=== PATIENT | female | born 1960 | race African-American/Black ===

== ENCOUNTER 2018-07-03 23:10 | Emergency (ER) | payer OTHER ==
[~2018-07-03] VITALS: Ht 175.3 cm; Wt 80.7 kg
[2018-07-03 23:21] VITALS: BP 124/74
[2018-07-03 23:48] LABS: BILIRUBIN,URINE NEGATIVE (NEG); CLARITY,URINE TURBID; COLOR,URINE AMBER; NITRITE,URINE NEGATIVE (NEG); PROTEIN,URINE >=300 mg/dL (NEG-TRACE)
[2018-07-04] LABS: BACTERIA,URINE MANY /HPF (0-FEW); RBC,URINE TNTC /HPF (0-2); SQUAMOUS EPITHELIAL CELL,UR OCC /LPF; WBC,URINE TNTC /HPF (0-4)
[2018-07-04] MEDS ORDERED: PHENAZOPYRIDINE 200 MG TABLET. PO ONE (00:30)
[2018-07-04] MEDS ORDERED: IBUPROFEN 400 MG TABLET. PO ONE (00:30)
[2018-07-04] MEDS ORDERED: SMZ/TMP 800/160MG TABLET. PO ONE (00:30)
[2018-07-04] MEDS ORDERED: CETIRIZINE HCL 10 MG TABLET. PO ONE (00:30)
[2018-07-04] MEDS ORDERED: PHEN100T82 PO (00:32)
[2018-07-04] MEDS ORDERED: DICL50TA4 PO (00:32)
[2018-07-04] MEDS ORDERED: SULF1TAB24 PO (00:32)
--- NOTE | 2018-07-04 00:32 | PHYS DOC ---
Past Medical History Past Medical History: Arthritis, Constipation Past Surgical History: Hysterectomy, Tubal ligation Alcohol Use: None Drug Use: None Adult General Chief Complaint Chief Complaint: BLOOD IN URINE HPI HPI Patient is a 57 year old female who presents complaining of urgency, frequency , dysuria that began yesterday. She also states today prior to coming to the ED she wiped herself postvoiding and noted small amount of blood on the toilet paper. Denies any fever. Denies any nausea, vomiting. Denies any flank pain. Denies any personal history of kidney stones. Review of Systems Review of Systems Constitutional: Denies fever or chills [] Eyes: Denies change in visual acuity, redness, or eye pain [] HENT: Denies nasal congestion or sore throat [] Respiratory: Denies cough or shortness of breath [] Cardiovascular: No additional information not addressed in HPI [] GI: Denies abdominal pain, nausea, vomiting, bloody stools or diarrhea [] : Reports urgency frequency dysuria and trace hematuria Musculoskeletal: Denies back pain or joint pain [] Integument: Denies rash or skin lesions [] Neurologic: Denies headache, focal weakness or sensory changes [] All other systems were reviewed and found to be within normal limits, except as documented in this note. Current Medications Current Medications Current Medications Medications (Trade) Dose Ordered Sig/Luis Start Time Stop Time Status Last Admin Dose Admin Cetirizine HCl (ZyrTEC) 10 mg 1X ONCE 07/04/18 00:30 07/04/18 00:31 DC 07/04/18 00:34 10 MG Ibuprofen (Motrin) 800 mg 1X ONCE 07/04/18 00:30 07/04/18 00:31 DC 07/04/18 00:35 800 MG Phenazopyridine HCl (Pyridium) 200 mg 1X ONCE 07/04/18 00:30 07/04/18 00:31 DC 07/04/18 00:34 200 MG Trimethoprim/ Sulfamethoxazole (Bactrim Ds) 1 tab 1X ONCE 07/04/18 00:30 07/04/18 00:31 DC 07/04/18 00:34 1 TAB Allergies Allergies Allergies Coded Allergies Type Severity Reaction Last Updated Verified codeine Allergy Intermediate Itching 02/21/16 Yes oxycodone Allergy Intermediate Hives 02/21/16 Yes Physical Exam Physical Exam Constitutional: Well developed, well nourished, no acute distress, non-toxic appearance. [] HENT: Normocephalic, atraumatic, bilateral external ears normal, oropharynx moist, no oral exudates, nose normal. [] Eyes: PERRLA, EOMI, conjunctiva normal, no discharge. [] Neck: Normal range of motion, no tenderness, supple, no stridor. [] Cardiovascular:Heart rate regular rhythm, no murmur [] Lungs & Thorax: Bilateral breath sounds clear to auscultation [] Abdomen: Bowel sounds normal, soft, no tenderness, no masses, no pulsatile masses. [] Skin: Warm, dry, no erythema, no rash. [] Back: No tenderness, no CVA tenderness. [] Extremities: No tenderness, no cyanosis, no clubbing, ROM intact, no edema. [] Neurologic: Alert and oriented X 3, normal motor function, normal sensory function, no focal deficits noted. [] Psychologic: Affect normal, judgement normal, mood normal. [] Current Patient Data Vital Signs Vital Signs Date Time Temp Pulse Resp B/P (MAP) Pulse Ox O2 Delivery O2 Flow Rate FiO2 07/03/18 23:21 97.4 84 18 124/74 (91) 100 Room Air 97.4 Lab Values Laboratory Tests Test 07/03/18 23:15 Urine Collection Type Void Urine Color Teresa Urine Clarity Turbid Urine pH 6.0 Urine Specific [place] 1.025 Urine Protein >=300 mg/dL (NEG-TRACE) Urine Glucose (UA) Negative mg/dL (NEG) Urine Ketones (Stick) Trace mg/dL (NEG) Urine Blood Large (NEG) Urine Nitrite Negative (NEG) Urine Bilirubin Negative (NEG) Urine Urobilinogen Dipstick 1.0 mg/dL (0.2 mg/dL) Urine Leukocyte Esterase Large (NEG) Urine RBC Tntc /HPF (0-2) Urine WBC Tntc /HPF (0-4) Urine Squamous Epithelial Cells Occ /LPF Urine Bacteria Many /HPF (0-FEW) Urine Mucus Slight /LPF EKG EKG [] Radiology/Procedures Radiology/Procedures [] Course & Med Decision Making Course & Med Decision Making Pertinent Labs and Imaging studies reviewed. (See chart for details) Patient is positive for UTI, discharged with Bactrim and Pyridium. Follow-up with PCP in 1-2 weeks. Instructed to push fluids. Diclofenac for pain. Dragon Disclaimer Dragon Disclaimer This electronic medical record was generated, in whole or in part, using a voice recognition dictation system. Departure Departure Impression: Primary Impression: Urinary tract infection Disposition: 01 HOME, SELF-CARE Condition: STABLE Referrals: CONSTANTINE ARRIAGA MD (PCP) Follow-up in one week Patient Instructions: Urinary Tract Infection Additional Instructions: You were evaluated in the emergency room and noted to have urinary tract infection, we put you on antibiotics, take them as prescribed. Push fluids. Come back to the ED at any point symptoms worsen. Complete your oral antibiotics. Scripts Diclofenac Sodium (DICLOFENAC SODIUM) 50 Mg Tablet.dr 1 TAB PO BID, #20 TAB 0 Refills Prov: ANGEL LO APRN 07/04/18 Phenazopyridine Hcl (PYRIDIUM) 100 Mg Tablet 100 MG PO TID, #9 TAB Prov: ANGEL LO APRN 07/04/18 Sulfamethoxazole/Trimethoprim (BACTRIM DS TABLET) 1 Each Tablet 1 TAB PO BID, #14 TAB Prov: ANGEL LO APRN 07/04/18 Attending Co-Sign Attending Co-Sign The patient was not seen by me. The [facility] chart was reviewed. I agree with the plan of care. Problem Qualifiers Primary Impression: Urinary tract infection Urinary tract infection type: acute cystitis Hematuria presence: with hematuria Qualified Codes: N30.01 - Acute cystitis with hematuria ANGEL LO APRN Jul 04, 2018 00:32 TAHIR JOHNSON MD Jul 06, 2018 04:55
== END 2018-07-04 00:45 | disposition home or self-care (01) ==
LOC: ER 23:10
DX: N30.01 Acute cystitis with hematuria (principal); Z88.5 Allergy status to narcotic agent; Z90.710 Acquired absence of both cervix and uterus; Z98.51 Tubal ligation status
CPT/HCPCS: 81001; 99284